=== PATIENT | male | born 1940 | race Caucasian/White ===

== ENCOUNTER → 2020-07-17 | Outpatient (CLI) | payer MEDICARE | END | disposition home or self-care (01) | LOC: RAH 11:06 | PROVIDERS: ATTEND Physical Medicine & Rehabilitation | DX: M47.816 Spondylosis without myelopathy or radiculopathy, lumbar region (principal); M48.061 Spinal stenosis, lumbar region without neurogenic claudication | CPT/HCPCS: 72110 ==

== ENCOUNTER → 2020-08-22 | Outpatient (CLI) | payer MEDICARE | END | disposition home or self-care (01) | LOC: RAH 14:26 | PROVIDERS: ATTEND Physical Medicine & Rehabilitation | DX: M51.26 Other intervertebral disc displacement, lumbar region (principal); M47.816 Spondylosis without myelopathy or radiculopathy, lumbar region; M25.78 Osteophyte, vertebrae; M89.38 Hypertrophy of bone, other site; M48.061 Spinal stenosis, lumbar region without neurogenic claudication | CPT/HCPCS: 72148 ==

== ENCOUNTER → 2022-02-05 | Outpatient (CLI) | payer MEDICARE | END | disposition home or self-care (01) | LOC: RAH 15:01 | PROVIDERS: ATTEND Physical Medicine & Rehabilitation | DX: M16.11 Unilateral primary osteoarthritis, right hip (principal); M85.88 Other specified disorders of bone density and structure, other site; M62.89 Other specified disorders of muscle; M53.3 Sacrococcygeal disorders, not elsewhere classified; Z96.641 Presence of right artificial hip joint | CPT/HCPCS: 73700 ==

== ENCOUNTER → 2022-03-09 | Outpatient (CLI) | payer MEDICARE | END | disposition home or self-care (01) | LOC: RAH 09:25 | PROVIDERS: ATTEND Physical Medicine & Rehabilitation | DX: M51.26 Other intervertebral disc displacement, lumbar region (principal); M48.061 Spinal stenosis, lumbar region without neurogenic claudication; M54.16 Radiculopathy, lumbar region; M48.07 Spinal stenosis, lumbosacral region | CPT/HCPCS: 72148 ==